=== PATIENT | female | born 1955 | race Caucasian/White ===

== ENCOUNTER → 2020-04-03 | Day surgery (SDC) | payer MEDICARE, BC ==
[~2020-04-03] MED LIST: Lactated Ringers 1,000 ML IV SCH; Propofol 200 MG/20 ML SDV IV ONE
[2020-04-03 13:00] VITALS: BP 122/68; PULSE 80
--- NOTE | 2020-04-04 08:15 | OR ---
DATE OF OPERATION: 04/03/2020 PREOPERATIVE DIAGNOSIS: COLON CANCER SCREENING. POSTOPERATIVE DIAGNOSIS: COLON CANCER SCREENING. SURGEON: Chai Willoughby MD PROCEDURE: FULL-LENGTH COLONOSCOPY. ANESTHESIA: MAC. COMPLICATIONS: None. SPECIMEN: None. FINDINGS: 1. Full-length colonoscopy. 2. Ptgb-[id number] sigmoid diverticulosis. RECOMMENDATIONS: Followup colonoscopy every 10 years. INDICATIONS: The patient was seen for a Welcome to [employer] physical. She is due for a routine colon cancer screening. DESCRIPTION OF PROCEDURE: The patient was prepped and draped, placed in the left lateral decubitus position. A lubricated Olympus colonoscope was inserted and with ease advanced to the cecum. Direct visualization of the ileocecal valve and appendiceal orifice was accomplished. The bowel prep was fine. Upon withdrawal of the scope, throughout the entire length of the colon, I could find no polyps, masses, ulceration, or bleeding sites. No vascular abnormalities or signs of colitis. There were scattered diverticula throughout most of the sigmoid into the rectosigmoid junction, mild to moderate in severity. No inflammatory changes seen. The rectal vault was benign. Retroflexion of the scope in the rectum showed no anal lesions. Air was suctioned, the scope removed without complication. EJ/YAMIL /[id number]
== END ==
LOC: CC.SDS 10:06
PROVIDERS: ATTEND Family Medicine
DX: Z12.11 Encounter for screening for malignant neoplasm of colon (principal); K57.30 Diverticulosis of large intestine without perforation or abscess without bleeding; F41.9 Anxiety disorder, unspecified; I10 Essential (primary) hypertension; K44.9 Diaphragmatic hernia without obstruction or gangrene; G24.5 Blepharospasm; M81.0 Age-related osteoporosis without current pathological fracture; Z79.899 Other long term (current) drug therapy
CPT/HCPCS: J7120

== ENCOUNTER → 2023-05-04 | Day surgery (SDC) | payer MEDICARE, BC ==
[~2023-05-04] MED LIST changes: -Lactated Ringers 1,000 ML IV SCH; +Midazolam 1 MG/ML 2 ML SDV ONE; +Ondansetron 4 MG/2 ML SDV ONE; -Propofol 200 MG/20 ML SDV IV ONE; +Propofol 200 MG/20 ML SDV ONE; +fentaNYL 50 MCG/ML SDV ONE
[2023-05-04] MEDS: Lactated Ringers 1,000 ML IV SCH (08:42)
[2023-05-04] MEDS: Lidocaine 1% with EPINEPHrine 1:100,000 20 ML MDV INJECT ONE (10:08)
[2023-05-04 12:11] VITALS: BP 135/88; PULSE 77
== END ==
LOC: CC.SDS 08:12
PROVIDERS: ATTEND Surgery
DX: D17.23 Benign lipomatous neoplasm of skin and subcutaneous tissue of right leg (principal); M81.0 Age-related osteoporosis without current pathological fracture; F41.9 Anxiety disorder, unspecified; I10 Essential (primary) hypertension; M70.60 Trochanteric bursitis, unspecified hip; L82.1 Other seborrheic keratosis; Z79.899 Other long term (current) drug therapy; Z98.890 Other specified postprocedural states
CPT/HCPCS: 00400; J2250; J2405; J2704; J3010; J3490; J7120